=== PATIENT | male | born 1950 | race Caucasian/White ===

== ENCOUNTER 2017-05-07 20:30 | Emergency (ER) | payer MEDICARE, OTHER ==
[2017-05-07 21:13] LABS: APPEARANCE,URINE Clear (CLEAR); BILIRUBIN,URINE Negative (NEGATIVE); COLOR,URINE Yellow (YELLOW); GLUCOSE, URINE (UA) >=1000 mg/dL (NEGATIVE); KETONES,URINE Negative (NEGATIVE); LEUKOCYTE ESTERASE ,URINE Negative (NEGATIVE); NITRATE,URINE Negative (NEGATIVE); OCCULT BLOOD,URINE Negative (NEGATIVE); PH,URINE 6.5 (5.0-8.0); PROTEIN,URINE Negative (NEGATIVE)
[2017-05-07 21:28] LABS: BASOPHILS % (AUTO) 0.8 % (0.0-5.0); EOSINOPHILS % (AUTO) 2.7 % (0.0-8.0); HEMATOCRIT 40.8 % (42-54); LYMPHOCYTES % (AUTO) 22.9 % (21.0-51.0); MEAN CORPUSCULAR HEMOGLOBIN 30.5 pg (27.0-33.0); MEAN CORPUSCULAR HGB CONC 33.9 g/dL (32.0-36.0); MEAN CORPUSCULAR VOLUME 89.9 fL (79-99); MONOCYTES % (AUTO) 10.6 % (3.0-13.0); PLATELET COUNT (AUTO) 237 K/uL (130-400); RED BLOOD CELL COUNT(AUTO) 4.53 MIL/uL (4.50-6.20); RED CELL DISTRIBUTION WIDTH 13.9 % (11.0-15.5); WHITE BLOOD COUNT (AUTO) 14.7 K/uL (4.8-10.8)
[2017-05-07 21:38] LABS: CREATININE 1.3 mg/dL (0.5-1.5); POTASSIUM 3.8 mmol/L (3.5-5.1)
[2017-05-07 21:43] LABS: ALBUMIN 3.4 g/dL (3.5-5.0); BILIRUBIN,TOTAL 0.3 mg/dL (0.2-1.0); TOTAL PROTEIN, SERUM 7.6 g/dL (6.0-8.3)
[2017-05-07 21:45] LABS: BACTERIA,URINE Rare /HPF (None Seen); MUCUS,URINE Few LPF (None Seen); RBC,URINE 0-1 /HPF (0-1); SQUAMOUS EPITHELIAL CELL,UR Few /LPF (0-2); WBC,URINE 0-1 /HPF (0-1)
[2017-05-07 22:46] LABS: INR 0.9 (0.85-1.15); PARTIAL THROMBOPLASTIN TIME 27.8 SEC (26.3-35.5); PROTHROMBIN TIME 9.5 SEC (9.6-11.6)
[2017-05-07 22:56] LABS: AMYLASE 30 U/L (25-115); CREATINE KINASE MB 1.4 ng/mL (0.5-3.6); LIPASE 183 U/L (114-286)
[2017-05-08] MEDS ORDERED: LEVOFLOXACIN 500 MG TABLET ONE (04:40)
[2017-05-08] MEDS ORDERED: TRAMADOL HCL 50 MG TABLET ONE (04:41)
== END 2017-05-08 04:53 | disposition home or self-care (01) ==
LOC: EDH 20:30
DX: E11.65 Type 2 diabetes mellitus with hyperglycemia (principal); R10.11 Right upper quadrant pain; I10 Essential (primary) hypertension; E07.9 Disorder of thyroid, unspecified; E78.5 Hyperlipidemia, unspecified; Z79.4 Long term (current) use of insulin; Z86.711 Personal history of pulmonary embolism
CPT/HCPCS: 36415; 71010; 74176; 76705; 80053; 81001; 82150; 82550; 82553; 83690; 84484; 85025; 85610; 85730; 93005